=== PATIENT | female | born 1990 | race Two or more races ===

== ENCOUNTER 2018-06-06 09:27 | Emergency (ER) | payer OTHER ==
--- NOTE | 2018-06-06 09:40 | ER Document Report ---
ED Psych Disorder / Suicide - General Mode of Arrival: Medic Information source: Patient, Emergency Med Personnel TRAVEL OUTSIDE OF THE [place] IN LAST 30 DAYS: No - HPI Patient complains to provider of: Overdose, Suicidal attempt Onset: This morning Onset was: Cannot confirm Quality of pain: No pain Suicide Risk Factors: Other mental health dx. Suicide Attempt Method: Overdose Overdose of: Other - HYDROXYZINE Strength: 25 mg Amount: 13 Time of ingestion: 07:30 Associated symptoms: Depressed Similar symptoms previously: No Recently seen / treated by doctor: Yes - LAST WEEK, HAD HYSTEROSCOPY <BROCK CARVALHO - Last Filed: 06/06/18 14:09> <FRANSISCO JIMÉNEZ - Last Filed: 06/07/18 12:16> <JASON NUNEZ - Last Filed: 06/07/18 12:27> - General Stated Complaint: POSSIBLE OVERDOSE Time Seen by Provider: 06/06/18 09:29 Notes: EMS REPORTS PATIENT TOOK OVERDOSE OF HYDROXYZINE, LEFT SUICIDE NOTE. (BROCK CARVALHO) - Related Data Allergies/Adverse Reactions: No Known Allergies Allergy (Verified 06/06/18 09:44) Past Medical History - General Information source: Patient - Social History Smoking Status: Never Smoker Cigarette use (# per day): No Chew tobacco use (# tins/day): No Frequency of alcohol use: None Drug Abuse: None Lives with: Spouse/Significant other Family History: None Patient has suicidal ideation: Yes Patient has homicidal ideation: No - Past Medical History Cardiac Medical History: Reports: None Pulmonary Medical History: Reports: None EENT Medical History: Reports: None Neurological Medical History: Reports: None Endocrine Medical History: Reports: None Renal/ Medical History: Reports: None Malignancy Medical History: Reports: None GI Medical History: Reports: None Musculoskeletal Medical History: Reports None Skin Medical History: Reports None Psychiatric Medical History: Reports: Hx Depression Traumatic Medical History: Reports: None Past Surgical History: Reports: Hx Gynecologic Surgery <BROCK CARVALHO - Last Filed: 06/06/18 14:09> Review of Systems - Review of Systems Constitutional: No symptoms reported EENT: No symptoms reported Cardiovascular: No symptoms reported Respiratory: No symptoms reported Gastrointestinal: No symptoms reported Genitourinary: No symptoms reported Female Genitourinary: No symptoms reported Musculoskeletal: No symptoms reported Skin: No symptoms reported Neurological/Psychological: See HPI <BROCK CARVALHO - Last Filed: 06/06/18 14:09> Physical Exam - Vital signs Interpretation: Hypotensive. No: Tachycardic, Tachypneic, Febrile - General General appearance: Appears well, Alert In distress: None - HEENT Head: Normocephalic Eyes: Normal Conjunctiva: Normal Ears: Normal Nasal: Normal Mouth/Lips: Normal Mucous membranes: Normal - Respiratory Respiratory status: No respiratory distress Breath sounds: Normal - Cardiovascular Rhythm: Regular Heart sounds: Normal auscultation Murmur: No - Abdominal Inspection: Normal Distension: No distension Bowel sounds: Normal - Back Back: Normal - Extremities General upper extremity: Normal inspection General lower extremity: Normal inspection - Neurological Neuro grossly intact: Yes Cognition: Normal Orientation: AAOx4 - Psychological Associated symptoms: Flat affect - Skin Skin Temperature: Warm Skin Moisture: Dry Skin Color: Normal Skin Turgor: Elastic <BROCK CARVALHO - Last Filed: 06/06/18 14:09> - Vital signs Vitals: BP 121/61 06/06/18 09:31 Course - Laboratory Result Diagrams: 06/06/18 09:08 06/06/18 09:08 - EKG Interpretation by Ut EKG shows normal: Sinus rhythm, [place], Intervals, QRS Complexes. abnormal: ST-T Waves - BORDERLINE ANT.T ABNLS Rate: Normal Rhythm: NSR <BROCK CARVALHO - Last Filed: 06/06/18 14:09> - Laboratory Result Diagrams: 06/06/18 09:08 06/06/18 09:08 <FRANSISCO JIMÉNEZ - Last Filed: 06/07/18 12:16> - Laboratory Result Diagrams: 06/06/18 09:08 06/06/18 09:08 <JASON NUNEZ - Last Filed: 06/07/18 12:27> - Re-evaluation Re-evalutation: 06/07/18 12:26 28-year-old female presents after taking more than her correct prescribed amount of hydroxyzine. Patient denies suicidal homicidal ideation. Patient has support group of [employer] in [place] where she is moving, boyfriend and her just bought a home. They have a dog and cat she is forward thinking and planning of the removed. Will be discharged home. LEVEL Billing Dr. Jason Nunez D.O. (JASON NUNEZ) - Vital Signs Vital signs: Temp Pulse Resp BP Pulse Ox 98.1 F 70 14 108/54 L 99 06/07/18 06:44 06/07/18 06:44 06/07/18 06:44 06/07/18 06:44 06/07/18 06:44 - Laboratory Laboratory results interpreted by me: 06/06/18 06/06/18 09:08 09:08 MCH 33.9 H Total Protein 8.5 H Salicylates < 1.0 L Acetaminophen < 10 L Discharge <BROCK CARVALHO - Last Filed: 06/06/18 14:09> <FRANSISCO JIMÉNEZ - Last Filed: 06/07/18 12:16> <JASON NUNEZ - Last Filed: 06/07/18 12:27> - Discharge Clinical Impression: Overdose Qualifiers: Encounter type: initial encounter Injury intent: accidental or unintentional Qualified Code(s): T50.901A - Poisoning by unspecified drugs, medicaments and biological substances, accidental (unintentional), initial encounter Accidental overdose Qualifiers: Encounter type: initial encounter Qualified Code(s): T50.901A - Poisoning by unspecified drugs, medicaments and biological substances, accidental ( unintentional), initial encounter Clinical Impression: (Ruled Out): Suicide attempt by drug ingestion Condition: Stable Disposition: HOME, SELF-CARE Additional Instructions: You have been evaluated by both medical and behavioral health team's and have been deemed appropriate for discharge. Is recommended you take your medications as prescribed. Is also recommended that you should speak with your outpatient mental health provider about adjusting your medications. Please follow-up with the [facility] in [place] upon arrival. AT ANY TIME, IF YOUR SYMPTOMS CHANGE SIGNIFICANTLY OR WORSEN OR YOU DEVELOP NEW SYMPTOMS, RETURN TO THE EMERGENCY DEPARTMENT IMMEDIATELY FOR RE-EVALUATION. Referrals: [facility] [Outside] - Follow up as needed
[2018-06-06 09:51] LABS: ABSOLUTE EOSINOPHILS # (AUTO) 0.1 10^3/uL (0.0-0.6); ABSOLUTE LYMPHOCYTES (AUTO) 1.5 10^3/uL (0.5-4.7); ABSOLUTE MONOCYTES (AUTO) 0.4 10^3/uL (0.1-1.4); ABSOLUTE NEUT (AUTO) 3.1 10^3/uL (1.7-8.2); BASOPHILS % (AUTO) 0.6 % (0-2); EOSINOPHILS % (AUTO) 2.4 % (0-6); HEMATOCRIT 40.2 % (36.0-47.0); HEMOGLOBIN 14.4 g/dL (12.0-15.5); LYMPHOCYTES % (AUTO) 28.1 % (13-45); MEAN CORPUSCULAR HEMOGLOBIN 33.9 pg (27.0-33.4); MEAN CORPUSCULAR HGB CONC 35.7 g/dL (32.0-36.0); MEAN CORPUSCULAR VOLUME 95 fl (80-97); MONOCYTES % (AUTO) 8.4 % (3-13); PLATELET COUNT 253 10^3/uL (150-450); RED BLOOD COUNT 4.23 10^6/uL (3.72-5.28); RED CELL DISTRIBUTION WIDTH 12.4 % (11.5-14.0); SEGMENTED NEUTROPHILS % (AUTO) 60.5 % (42-78); TOTAL CELLS COUNTED % (AUTO) 100 %; WHITE BLOOD COUNT 5.2 10^3/uL (4.0-10.5)
[2018-06-06 10:13] LABS: APPEARANCE,URINE CLEAR; BILIRUBIN,URINE NEGATIVE (NEGATIVE); COLOR,URINE STRAW; GLUCOSE, URINE NEGATIVE (NEGATIVE); KETONES,URINE NEGATIVE (NEGATIVE); LEUKOCYTE ESTERASE,URINE NEGATIVE (NEGATIVE); NITRITE,URINE NEGATIVE (NEGATIVE); PROTEIN,URINE NEGATIVE (NEGATIVE); URINE SPECIFIC GRAVITY 1.001; UROBILINOGEN,URINE NEGATIVE mg/dL (<2.0)
[2018-06-06 10:31] LABS: ALANINE AMINOTRANSFERASE 20 U/L (9-52); ALBUMIN 4.8 g/dL (3.5-5.0); ALKALINE PHOSPHATASE 46 U/L (38-126); ANION GAP 14 (5-19); ASPARTATE AMINO TRANSFERASE 21 U/L (14-36); BILIRUBIN,DIRECT 0.2 mg/dL (0.0-0.4); BILIRUBIN,TOTAL 0.8 mg/dL (0.2-1.3); BLOOD UREA NITROGEN 9 mg/dL (7-20); CARBON DIOXIDE 26 mmol/L (22-30); CHLORIDE 103 mmol/L (98-107); GLUCOSE 89 mg/dL (75-110); POTASSIUM 3.9 mmol/L (3.6-5.0); SODIUM 143.2 mmol/L (137-145); TOTAL PROTEIN 8.5 g/dL (6.3-8.2)
[2018-06-06 10:32] LABS: ACETAMINOPHEN < 10 ug/mL (10-30); ALCOHOL < 10 mg/dL (NONE DETECTED); SALICYLATE < 1.0 mg/dL (2.0-20.0)
[2018-06-06 10:42] LABS: URINE AMPHETAMINES SCREEN NEGATIVE; URINE BARBITURATES SCREEN NEGATIVE; URINE BENZODIAZEPINES SCREEN NEGATIVE; URINE COCAINE SCREEN NEGATIVE; URINE MARIJUANA (THC) SCREEN NEGATIVE; URINE METHADONE SCREEN NEGATIVE; URINE PHENCYCLIDINE SCREEN NEGATIVE
--- NOTE | 2018-06-06 11:55 | PSYCHOLOGICAL NOTE ---
Psych Note - Psych Note Psych Note: Psych Note: 28 year old female admitted to the ED for possible overdose of Atarax. [employer] provided a copy of suicide note left out on the counter beside the pill bottle. During consult patient admitted to taking 13 Atarax today INSTEAD of the 9-10 Atarax that she normally takes at one time. Patient contends that she was not trying to kill herself but just trying to get some sleep because the normal 9- 10 Atarax that she takes was not working. Patient states that her therapist ( Dr. [facility]) encouraged her to journal each day to help with her anxiety. According to the patient, what everybody thinks is a suicide note is just her daily "journal" entry. Patient stressed that she had surgery on May and has been restless every since then and was just trying to rest. Patient was honorably discharged from the [facility] on June 04, 2018, after 11 years of service. Patient reports that she is trying to get , so she wanted to get out of the . Patient has plans to move to [place], [place] tomorrow with her boyfriend who is getting stationed there. Patient has prior diagnosis of PTSD, Depression, Anxiety & Dissociative Disorder all while in the . Nurse noted that patient has a permit to carry a gun in her wallet. Diagnosis: 309.81 Posttraumatic Stress Disorder 300.02 (F41.1) Generalized Anxiety Disorder Impression/Plan: Patient was calm and cooperative. Appeared to be groggy but was able to answer questions in a clear, direct manner. Patient made eye contact throughout the consultation. Patient appeared to be glad she exited the and looking forward to moving to [place]. Patient volunteered information about her family, as her mother lives in [place].
[2018-06-06] MEDS ORDERED: BENZTROPINE MESYLATE 1 MG TABLET PO SCH (14:15)
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
--- NOTE | 2018-06-06 18:30 | EKG REPORT ---
SEVERITY:- BORDERLINE ECG - SINUS RHYTHM BORDERLINE T ABNORMALITIES, ANTERIOR LEADS : Confirmed by: Raquel Patterson MD 06-Jun-2018 18:29:46
[2018-06-06] MEDS: OLANZAPINE 5 MG TABLET PO SCH (18:32)
--- NOTE | 2018-06-07 09:21 | ER Document Report ---
Doctor's Note Notes: 06/07/18 09:20 Patient presents after suicide attempt hydroxyzine overdose. Patient is still very flat affect. Patient under involuntary commitment paperwork. Physical exam reassuring. Patient has no physical complaints at this time. Patient looking for placement.
[2018-06-07] MEDS: OLANZAPINE 5 MG TABLET PO SCH (10:16)
[2018-06-07 12:51] VITALS: BP 114/71
== END 2018-06-07 13:00 | disposition home or self-care (01) ==
LOC: ER 09:27
DX: T43.591A Poisoning by other antipsychotics and neuroleptics, accidental (unintentional), initial encounter (principal); Y92.009 Unspecified place in unspecified non-institutional (private) residence as the place of occurrence of the external cause; F32.9 Major depressive disorder, single episode, unspecified; R94.31 Abnormal electrocardiogram [ECG] [EKG]
CPT/HCPCS: 36415; 80053; 80307; 81001; 84703; 85025; 93005; 93010; 99285